=== PATIENT | female | born 1945 | race Hispanic/Latino ===

== ENCOUNTER 2017-11-30 16:37 | Inpatient (IN) | payer MEDICARE ==
[~2017-11-30] VITALS: Ht 170.2 cm; Wt 71.7 kg
[~2017-11-30 16:37] MED LIST: ASPIR 8181 MG PO; CLOPIDOGREL75 MG PO; SIMVASTATIN80 MG PO; TOPROL XL25 MG PO
[2017-11-30] MEDS ORDERED: ASPIRIN 81 MG CHEW TAB PO ONE (17:30)
--- NOTE | 2017-11-30 18:16 | Diagnostic Imaging Report ---
PROCEDURE: A single AP view of the chest. COMPARISON: None. INDICATIONS: CHEST PAIN CENTER TODAY FINDINGS: Lines/tubes: None. Lungs: The lungs are well inflated. Diffuse interstitial opacities, more confluent in the right upper lung. Pleura: There is no pleural effusion or pneumothorax. Heart and mediastinum: The heart and the mediastinum are unremarkable. Bones: No acute bony abnormality. Upper abdomen: No free air under the diaphragm. Cholecystectomy clips. IMPRESSION: Diffuse interstitial opacities, more confluent in the right upper lung, concerning for multifocal pneumonia in the appropriate clinical context. Dictated by: Waylon Ash M.D. on 11/30/2017 at 18:19 Electronically approved by: Waylon Ash M.D. on 11/30/2017 at 18:19
[2017-11-30 18:33] LABS: CLARITY,URINE SL CLOUDY (CLEAR); COLOR,URINE YELLOW (YELLOW)
[2017-11-30 18:35] LABS: BILIRUBIN,URINE NEGATIVE (NEGATIVE); KETONES,URINE NEGATIVE (NEGATIVE); LEUKOCYTE ESTERASE ,URINE NEGATIVE (NEGATIVE); NITRITE,URINE NEGATIVE (NEGATIVE); PROTEIN,URINE DIPSTICK NEGATIVE (NEGATIVE); URINE UROBILINOGEN 0.2 mg/dL (0.2 - 1)
[2017-11-30 18:43] LABS: EPITHELIAL CELLS,URINE FEW /LPF; MUCUS,URINE MODERATE (RARE); WBC,URINE (MAN) 0-5 /HPF (0-5)
[2017-11-30 19:17] LABS: BASOPHILS # (AUTO) 0.1 (0.0-0.1); BASOPHILS % 0.8 % (0.0-1.0); EOSINOPHILS # (AUTO) 0.3 (0.0-0.4); HEMATOCRIT 39.9 % (34.2-44.1); HEMOGLOBIN 13.1 g/dL (12.0-16.0); LYMPHOCYTES # (AUTO) 3.8 (1.0-3.2); LYMPHOCYTES % 44.3 % (18.0-39.1); MEAN CORPUSCULAR HEMOGLOBIN 30.5 pg (28-32); MEAN CORPUSCULAR HGB CONC 32.8 g/dL (31-35); MONOCYTES # (AUTO) 0.7 (0.2-0.8); MONOCYTES % 8.6 % (4.4-11.3); NEUTROPHILS # (AUTO) 3.6 (2.1-6.9); NEUTROPHILS % 41.9 % (38.7-80.0); PLATELET COUNT 248 x10e3/uL (140-360); RED BLOOD COUNT 4.29 x10e6/uL (3.6-5.1); RED CELL DISTRIBUTION WIDTH 13.2 % (11.7-14.4)
[2017-11-30 19:24] LABS: INR 1.02; PARTIAL THROMBOPLASTIN TIME 22.5 seconds (23.8-35.5); PROTHROMBIN TIME 12.6 seconds (11.9-14.5)
[2017-11-30 19:34] LABS: ALANINE AMINOTRANSFERASE 10 IU/L (0-55); ALBUMIN 3.5 g/dL (3.5-5.0); ALBUMIN/GLOBULIN RATIO 0.9 (0.8-2.0); ALKALINE PHOSPHATASE 109 IU/L (40-150); ANION GAP 14.3 mmol/L (8-16); BLOOD UREA NITROGEN 19 mg/dL (7-26); BUN/CREATININE RATIO 19 (6-25); CALCIUM 9.2 mg/dL (8.4-10.2); CARBON DIOXIDE 25 mmol/L (22-29); CHLORIDE 106 mmol/L (98-107); CREATINE KINASE 128 IU/L (29-168); EST GLOMERULAR FILTRATION RATE 54 ML/MIN (60-); GLUCOSE 90 mg/dL (74-118); LIPASE 40 U/L (8-78); POTASSIUM 4.3 mmol/L (3.5-5.1); SODIUM 141 mmol/L (136-145)
[2017-11-30 19:53] LABS: THYROID STIMULATING HORMONE 4.578 uIU/mL (0.350-4.940)
[2017-11-30] MEDS: AZITHROMYCIN 500MG/NS 250 ML 250 ML IV SCH (21:00)
[2017-11-30] MEDS ORDERED: SODIUM CHLORIDE FLUSH 10 ML SYR INJ PRN (21:15)
[2017-12-01] MEDS: ALBUTEROL SULF 0.083% NEB SOLN 3 ML NEB NEB SCH ×3 (00:10→19:30)
[2017-12-01] MEDS: CEFTRIAXONE SOD 1 GM VIAL IV SCH ×2 (00:23→20:47)
[2017-12-01 02:00] VITALS: BP 139/95
[2017-12-01] MEDS ORDERED: NEXIUM40 MG PO (02:42)
[2017-12-01 03:45] LABS: CREATINE KINASE 109 IU/L (29-168)
[2017-12-01 04:00] VITALS: BP 138/60
[2017-12-01] MEDS ORDERED: SODIUM CHLORIDE 0.9% 250ML 250 ML ONE (04:49)
[2017-12-01] MEDS: AZITHROMYCIN 500MG/NS 250 ML 250 ML IV SCH (04:59)
[2017-12-01 09:13] VITALS: BP 118/56
[2017-12-01 11:21] LABS: CREATINE KINASE 93 IU/L (29-168)
[2017-12-01] MEDS: IPRATROPIUM BROMIDE 0.02% 2.5 ML NEB NEB SCH ×2 (13:00→19:30)
[2017-12-01] MEDS ORDERED: NORCO 5-325 TA1 EACH PO (14:34)
[2017-12-01] MEDS: HYDROCODONE/APAP 5MG-325MG TAB PO PRN ×2 (16:14→22:31)
[2017-12-01 16:50] VITALS: BP 111/59
[2017-12-01 20:00] VITALS: BP 130/58
[2017-12-02] VITALS (7 sets, daily range): BP systolic 112–133; BP diastolic 56–70
[2017-12-02] MEDS: IPRATROPIUM BROMIDE 0.02% 2.5 ML NEB NEB SCH ×4 (00:10→19:43)
[2017-12-02] MEDS: ALBUTEROL SULF 0.083% NEB SOLN 3 ML NEB NEB SCH ×6 (03:05→23:35)
[2017-12-02] MEDS: HYDROCODONE/APAP 5MG-325MG TAB PO PRN ×3 (05:05→23:33)
[2017-12-02] MEDS: AZITHROMYCIN 500MG/NS 250 ML 250 ML IV SCH (05:05)
[2017-12-02] MEDS: METOPROLOL SUCCINATE 25 MG TAB XL PO SCH (08:15)
[2017-12-02] MEDS: ASPIRIN 81 MG CHEW TAB PO SCH (08:15)
[2017-12-02] MEDS: PANTOPRAZOLE SOD 40 MG TABEC PO SCH (08:15)
[2017-12-02] MEDS: CLOPIDOGREL BISULFATE 75 MG TAB PO SCH (08:15)
[2017-12-02] MEDS ORDERED: MAGNESIUM HYDROXIDE 30 ML UDC PO ONE (10:15)
[2017-12-02] MEDS: CEFTRIAXONE SOD 1 GM VIAL IV SCH (20:58)
[2017-12-02] MEDS ORDERED: SIMVASTATIN 80 MG TAB PO SCH (21:00)
[2017-12-03] VITALS (8 sets, daily range): BP systolic 106–132; BP diastolic 55–72
[2017-12-03] MEDS: IPRATROPIUM BROMIDE 0.02% 2.5 ML NEB NEB SCH ×5 (03:07→23:18)
[2017-12-03] MEDS: ALBUTEROL SULF 0.083% NEB SOLN 3 ML NEB NEB SCH ×6 (03:07→23:18)
[2017-12-03] MEDS: HYDROCODONE/APAP 5MG-325MG TAB PO PRN ×3 (05:36→21:18)
[2017-12-03] MEDS: AZITHROMYCIN 500MG/NS 250 ML 250 ML IV SCH (05:36)
[2017-12-03] MEDS: PANTOPRAZOLE SOD 40 MG TABEC PO SCH (09:11)
[2017-12-03] MEDS: ASPIRIN 81 MG CHEW TAB PO SCH (09:11)
[2017-12-03] MEDS: CLOPIDOGREL BISULFATE 75 MG TAB PO SCH (09:11)
[2017-12-03] MEDS: METOPROLOL SUCCINATE 25 MG TAB XL PO SCH (09:12)
--- NOTE | 2017-12-03 16:22 | Progress Note ---
DATE: December 03, 2017 INTERNAL MEDICINE PROGRESS NOTE SUBJECTIVE: A 72-year-old female who was diagnosed with pneumonia. She is doing much better now. PHYSICAL EXAM: VITAL SIGNS: Blood pressure 123/72. Temperature 96.7. Heart rate 71 per minute. Respiratory rate 17 per minute. Oxygen saturation is 99%. HEART: Regular rhythm. No murmur. No extra sounds. LUNGS: Crackles on both lungs. ABDOMEN: Soft. EXTREMITIES: Show no evidence of cyanosis, edema or trauma. On the BMP sodium 141, potassium 4.3, chloride 106, CO2 25, BUN 19, creatinine 1.0. Glucose 90. CBC showed white blood count 8.57, hemoglobin 13.1, hematocrit 39.9, platelet count 248,000. PT 12.6. INR 1.02. PTT 22.5. AST 15, ALT 10, total bilirubin 0.3, alkaline phosphatase 109. FINAL IMPRESSION: 1. Bilateral pneumonia. 2. Coronary artery disease. 3. Hypertension. 4. Hypercholesterolemia. PLAN OF TREATMENT: Continue albuterol and Atrovent q.6 hours, Zithromax 250 mg IV piggyback once a day. Rocephin 1 gram IV p.o. once a day. Plavix 75 mg daily. Metoprolol 25 mg daily. We need to hold the simvastatin because the patient is taking Zithromax because of the drug interaction. Continue Protonix 40 mg daily. Aspirin 81 mg daily. [place] 1 tablet q.6 h. as needed for pain. Job#: [id number]
[2017-12-03] MEDS: CEFTRIAXONE SOD 1 GM VIAL IV SCH (20:19)
[2017-12-04] VITALS (9 sets, daily range): BP systolic 118–146; BP diastolic 58–69
[2017-12-04] MEDS: ALBUTEROL SULF 0.083% NEB SOLN 3 ML NEB NEB SCH ×6 (02:52→23:06)
[2017-12-04] MEDS: AZITHROMYCIN 500MG/NS 250 ML 250 ML IV SCH (04:39)
[2017-12-04] MEDS: IPRATROPIUM BROMIDE 0.02% 2.5 ML NEB NEB SCH ×4 (07:00→23:06)
[2017-12-04] MEDS: ASPIRIN 81 MG CHEW TAB PO SCH (08:44)
[2017-12-04] MEDS: PANTOPRAZOLE SOD 40 MG TABEC PO SCH (08:44)
[2017-12-04] MEDS: CLOPIDOGREL BISULFATE 75 MG TAB PO SCH (08:44)
[2017-12-04] MEDS: METOPROLOL SUCCINATE 25 MG TAB XL PO SCH (08:45)
--- NOTE | 2017-12-04 15:49 | Progress Note ---
DATE: December 04, 2017 INTERNAL MEDICINE PROGRESS NOTE SUBJECTIVE: She is doing well. No significant complaints. PHYSICAL EXAM: VITAL SIGNS: Blood pressure 138/65. The patient 96.5, heart rate 60 per minute. Respiratory rate is 16 per minute. Oxygen saturation 99%. HEART: Regular rhythm. No murmur. No extra sounds. LUNGS: Clear bilaterally. ABDOMEN: Soft. EXTREMITIES: Show no evidence of cyanosis, edema or trauma. LABORATORY DATA: On the BMP, sodium 141, potassium 4.3, chloride 106. CO2 25, BUN 19, creatinine 1.0. Glucose 90. On the CBC white blood count 8.57, hemoglobin 13.1, hematocrit 39.9, platelet count 240.000. PT 12.6. INR 1.02. PTT 32.5. AST 15. ALT 10. Total bilirubin 0.3, alkaline phosphatase 109. FINAL IMPRESSION: 1. Multifocal pneumonia. 2. Hypertension. PLAN OF TREATMENT: Continue albuterol q.4 h. Atrovent q.6 hours. Zithromax 500 mg IV piggyback daily. Ceftriaxone 1 gram IV piggyback daily. Plavix 75 mg daily. Metoprolol 25 mg daily. Zocor is going to be placed on hold because the patient is taking Zithromax. Continue Protonix 40 mg daily. Aspirin 81 mg daily. [place] 1 tablet q.6 h. as needed. Tentative discharge hopefully tomorrow. Job#: [id number]
[2017-12-04] MEDS ORDERED: HYDROCODONE/APAP 5MG-325MG TAB PO PRN (16:30)
[2017-12-04] MEDS: CEFTRIAXONE SOD 1 GM VIAL IV SCH (20:39)
[2017-12-05] VITALS (8 sets, daily range): BP systolic 122–144; BP diastolic 26–66
[2017-12-05] MEDS: ALBUTEROL SULF 0.083% NEB SOLN 3 ML NEB NEB SCH ×6 (02:58→23:00)
[2017-12-05] MEDS: AZITHROMYCIN 500MG/NS 250 ML 250 ML IV SCH (05:03)
[2017-12-05] MEDS: IPRATROPIUM BROMIDE 0.02% 2.5 ML NEB NEB SCH ×3 (07:00→20:05)
[2017-12-05] MEDS: PANTOPRAZOLE SOD 40 MG TABEC PO SCH (09:33)
[2017-12-05] MEDS: ASPIRIN 81 MG CHEW TAB PO SCH (09:33)
[2017-12-05] MEDS: CLOPIDOGREL BISULFATE 75 MG TAB PO SCH (09:33)
[2017-12-05] MEDS: METOPROLOL SUCCINATE 25 MG TAB XL PO SCH (09:34)
[2017-12-05 11:46] LABS: BASOPHILS # (AUTO) 0.1 (0.0-0.1); BASOPHILS % 0.9 % (0.0-1.0); EOSINOPHILS # (AUTO) 0.3 (0.0-0.4); EOSINOPHILS % 4.3 % (0.0-6.0); HEMATOCRIT 39.3 % (34.2-44.1); HEMOGLOBIN 12.7 g/dL (12.0-16.0); LYMPHOCYTES # (AUTO) 2.5 (1.0-3.2); LYMPHOCYTES % 32.7 % (18.0-39.1); MEAN CORPUSCULAR HEMOGLOBIN 30.5 pg (28-32); MEAN CORPUSCULAR HGB CONC 32.3 g/dL (31-35); MEAN CORPUSCULAR VOLUME 94.5 fL (81-99); MONOCYTES # (AUTO) 0.6 (0.2-0.8); MONOCYTES % 8.1 % (4.4-11.3); NEUTROPHILS # (AUTO) 4.1 (2.1-6.9); NEUTROPHILS % 53.7 % (38.7-80.0); PLATELET COUNT 247 x10e3/uL (140-360); RED BLOOD COUNT 4.16 x10e6/uL (3.6-5.1)
[2017-12-05 12:09] LABS: ANION GAP 14.2 mmol/L (8-16); CALCIUM 9.3 mg/dL (8.4-10.2); CREATININE, SERUM 0.94 mg/dL (0.57-1.11); POTASSIUM 4.2 mmol/L (3.5-5.1)
--- NOTE | 2017-12-05 14:22 | Diagnostic Imaging Report ---
PROCEDURE: X-RAY CHEST, TWO VIEWS COMPARISON: Patients [facility], DX, CHEST SINGLE (PORTABLE), 11/30/2017, 17:44. INDICATIONS: PNEUMONIA FINDINGS: LUNGS: Diffuse hyperinflation and fibrosis is stable. No mass or infiltrate. Apical pleural-parenchymal thickening is stable.Pulmonary vasculature is normal. PLEURA: Stable eventration of right diaphragm. No effusions or pneumothorax. HEART \T\ MEDIASTINUM: The heart is within normal size-limits. BONES \T\ SOFT TISSUES: No focal osseous lesions. Cholecystectomy clips are stable. CONCLUSION: No evidence of infiltrate. No new cardiopulmonary process. Dictated by: Peri Shankar M.D. on 12/05/2017 at 14:25 Electronically approved by: Peri Shankar M.D. on 12/05/2017 at 14:25
[2017-12-05] MEDS: CEFTRIAXONE SOD 1 GM VIAL IV SCH (20:54)
[2017-12-06] VITALS: BP 152/66
[2017-12-06] MEDS: IPRATROPIUM BROMIDE 0.02% 2.5 ML NEB NEB SCH ×2 (01:00→07:45)
[2017-12-06] MEDS: ALBUTEROL SULF 0.083% NEB SOLN 3 ML NEB NEB SCH ×3 (03:00→11:09)
[2017-12-06 04:00] VITALS: BP 118/56
[2017-12-06] MEDS: AZITHROMYCIN 500MG/NS 250 ML 250 ML IV SCH (05:00)
[2017-12-06 07:25] VITALS: BP 135/65
[2017-12-06 07:47] VITALS: BP 135/63
[2017-12-06] MEDS: METOPROLOL SUCCINATE 25 MG TAB XL PO SCH (09:12)
[2017-12-06] MEDS: CLOPIDOGREL BISULFATE 75 MG TAB PO SCH (09:12)
[2017-12-06] MEDS: ASPIRIN 81 MG CHEW TAB PO SCH (09:12)
[2017-12-06] MEDS: PANTOPRAZOLE SOD 40 MG TABEC PO SCH (09:12)
[2017-12-06 11:43] VITALS: BP 133/97
== END 2017-12-06 11:46 | disposition home or self-care (01) | DRG 195 ==
LOC: ER 16:37 → ERHOLD 12-01 01:41 → MED/SURG3 12-01 02:00
DX: J18.9 Pneumonia, unspecified organism (principal); I25.10 Atherosclerotic heart disease of native coronary artery without angina pectoris; E78.00 Pure hypercholesterolemia, unspecified; I10 Essential (primary) hypertension; Z95.1 Presence of aortocoronary bypass graft; E03.9 Hypothyroidism, unspecified; E78.5 Hyperlipidemia, unspecified; Z79.899 Other long term (current) drug therapy
CPT/HCPCS: 36415; 71045; 71046; 80048; 80053; 81001; 82550; 82553; 83690; 83735; 83880; 84443; 84484; 85025; 85610; 85730; 87040; 87086; 93005; 94640; 96361; 99284; J0456; J0696; J7050

== ENCOUNTER → 2019-05-17 | Day surgery (SDC) | payer MEDICARE ==
[2019-05-14 16:12] LABS: BASOPHILS # (AUTO) 0.1 (0.0-0.1); BASOPHILS % 0.5 % (0.0-1.0); EOSINOPHILS # (AUTO) 0.2 (0.0-0.4); EOSINOPHILS % 1.7 % (0.0-6.0); HEMATOCRIT 37.6 % (34.2-44.1); HEMOGLOBIN 12.3 g/dL (12.0-16.0); LYMPHOCYTES # (AUTO) 3.2 (1.0-3.2); MEAN CORPUSCULAR HEMOGLOBIN 30.5 pg (28-32); MEAN CORPUSCULAR HGB CONC 32.7 g/dL (31-35); MEAN CORPUSCULAR VOLUME 93.3 fL (81-99); MONOCYTES # (AUTO) 0.9 (0.2-0.8); MONOCYTES % 8.4 % (4.4-11.3); NEUTROPHILS # (AUTO) 6.3 (2.1-6.9); NEUTROPHILS % 59.1 % (38.7-80.0); PLATELET COUNT 264 x10e3/uL (140-360); RED BLOOD COUNT 4.03 x10e6/uL (3.6-5.1); RED CELL DISTRIBUTION WIDTH 12.3 % (11.7-14.4)
[2019-05-14 16:27] LABS: ANION GAP 14.6 mmol/L (8-16); BLOOD UREA NITROGEN 12 mg/dL (7-26); BUN/CREATININE RATIO 14 (6-25); CALCIUM 9.4 mg/dL (8.4-10.2); CARBON DIOXIDE 25 mmol/L (22-29); CHLORIDE 105 mmol/L (98-107); CREATININE, SERUM 0.88 mg/dL (0.57-1.11); EST GLOMERULAR FILTRATION RATE > 60 ML/MIN (60-); GLUCOSE 91 mg/dL (74-118); POTASSIUM 3.6 mmol/L (3.5-5.1); SODIUM 141 mmol/L (136-145)
[~2019-05-17] MED LIST changes: +BALANCED SALT SOLN (OPTH) 15 ML BTL IO ONE; +BUPIVACAINE HC 0.75% PF 10ML VIAL INJ ONE; +CHONDR SU A NA/HYALUR SOD 1 EACH KIT IO ONE; +CYCLOPENTOLATE HCL 2% OPTH SOLN 2 ML BTL OP ONE; +EPINEPHRINE HCL 1:1000 1ML 1 MG/ML AMP ONE; +ESBRIET267 M1 PO; +FENTANYL CITRATE/PF 100MCG/2 ML INJ ONE; +GATIFLOXACIN(OPTH) 5 ML LIQD ONE; +LEVOTHYROXINE50 MCG PO; +LIDOCAINE 2% /EPINEPHRINE 20 ML SDV INJ ONE; +LIDOCAINE HCL 2% LOCAL INJ 5 ML SDV VIAL INJ ONE; +LIDOCAINE HCL-PF 4% 40 MG/1 ML 5ML AMP ONE; +MIDAZOLAM HCL 2 MG/2 ML VIAL ONE; +NEXIUM40 MG PO; +NORCO 5-325 TA1 EACH PO; +PHENYLEPHRINE HCL 2 ML DROPS ONE; +PILOCARPINE HCL(OPTH) 15 ML LIQD ONE; +POVIDONE IODINE 5% (OPTH) 30 ML BTL ONE; +PROPOFOL IV EMULSION 10 MG/ML 20 ML VIAL ONE; +TOBRAMYCIN/DEXAMETHASONE(OPTH) 3.5 GM TUBE ONE
[2019-05-17 09:40] VITALS: BP 128/60
== END | disposition home or self-care (01) ==
LOC: OR 06:57
PROVIDERS: ATTEND Ophthalmology
DX: H25.12 Age-related nuclear cataract, left eye (principal); I25.10 Atherosclerotic heart disease of native coronary artery without angina pectoris; I11.0 Hypertensive heart disease with heart failure; I50.9 Heart failure, unspecified; J84.10 Pulmonary fibrosis, unspecified; Z01.812 Encounter for preprocedural laboratory examination; Z79.02 Long term (current) use of antithrombotics/antiplatelets; Z79.82 Long term (current) use of aspirin; Z95.5 Presence of coronary angioplasty implant and graft; Z87.891 Personal history of nicotine dependence
CPT/HCPCS: 36415; 66982; 80048; 85025; J0171; J2001 ×2; J2250; J2704; J3010; V2632

== ENCOUNTER → 2019-07-12 | Day surgery (SDC) | payer MEDICARE ==
[2019-07-04 15:46] LABS: BASOPHILS # (AUTO) 0.1 (0.0-0.1); BASOPHILS % 0.8 % (0.0-1.0); EOSINOPHILS # (AUTO) 0.3 (0.0-0.4); EOSINOPHILS % 3.8 % (0.0-6.0); HEMATOCRIT 38.8 % (34.2-44.1); HEMOGLOBIN 12.2 g/dL (12.0-16.0); LYMPHOCYTES # (AUTO) 3.6 (1.0-3.2); LYMPHOCYTES % 41.1 % (18.0-39.1); MEAN CORPUSCULAR HEMOGLOBIN 29.8 pg (28-32); MEAN CORPUSCULAR HGB CONC 31.4 g/dL (31-35); MEAN CORPUSCULAR VOLUME 94.6 fL (81-99); MONOCYTES # (AUTO) 0.9 (0.2-0.8); MONOCYTES % 9.9 % (4.4-11.3); NEUTROPHILS # (AUTO) 3.8 (2.1-6.9); NEUTROPHILS % 43.9 % (38.7-80.0); PLATELET COUNT 338 x10e3/uL (140-360); RED CELL DISTRIBUTION WIDTH 12.7 % (11.7-14.4)
[2019-07-04 16:07] LABS: BLOOD UREA NITROGEN 14 mg/dL (7-26); BUN/CREATININE RATIO 17 (6-25); CALCIUM 9.1 mg/dL (8.4-10.2); CARBON DIOXIDE 26 mmol/L (22-29); CHLORIDE 105 mmol/L (98-107); CREATININE, SERUM 0.84 mg/dL (0.57-1.11); EST GLOMERULAR FILTRATION RATE > 60 ML/MIN (60-); GLUCOSE 91 mg/dL (74-118); SODIUM 142 mmol/L (136-145)
[~2019-07-12] MED LIST changes: -FENTANYL CITRATE/PF 100MCG/2 ML INJ ONE
[2019-07-12 08:25] VITALS: BP 131/55
== END | disposition home or self-care (01) ==
LOC: OR 05:12
PROVIDERS: ATTEND Ophthalmology
DX: H25.11 Age-related nuclear cataract, right eye (principal); I10 Essential (primary) hypertension; J84.10 Pulmonary fibrosis, unspecified; I25.10 Atherosclerotic heart disease of native coronary artery without angina pectoris; E03.9 Hypothyroidism, unspecified; K21.9 Gastro-esophageal reflux disease without esophagitis; Z01.810 Encounter for preprocedural cardiovascular examination; Z01.812 Encounter for preprocedural laboratory examination; Z79.02 Long term (current) use of antithrombotics/antiplatelets; Z79.82 Long term (current) use of aspirin
CPT/HCPCS: 36415; 66982; 80048; 85025; 93005; J0171; J2001 ×2; J2250; J2704; V2632

== ENCOUNTER 2021-01-25 19:44 | Emergency (ER) | payer MEDICARE, OTHER ==
[~2021-01-25] VITALS: Ht 162.6 cm; Wt 73.0 kg
[~2021-01-25 19:44] MED LIST changes: -BALANCED SALT SOLN (OPTH) 15 ML BTL IO ONE; -BUPIVACAINE HC 0.75% PF 10ML VIAL INJ ONE; -CHONDR SU A NA/HYALUR SOD 1 EACH KIT IO ONE; -CYCLOPENTOLATE HCL 2% OPTH SOLN 2 ML BTL OP ONE; -EPINEPHRINE HCL 1:1000 1ML 1 MG/ML AMP ONE; -GATIFLOXACIN(OPTH) 5 ML LIQD ONE; -LIDOCAINE 2% /EPINEPHRINE 20 ML SDV INJ ONE; -LIDOCAINE HCL 2% LOCAL INJ 5 ML SDV VIAL INJ ONE; -LIDOCAINE HCL-PF 4% 40 MG/1 ML 5ML AMP ONE; -MIDAZOLAM HCL 2 MG/2 ML VIAL ONE; -PHENYLEPHRINE HCL 2 ML DROPS ONE; -PILOCARPINE HCL(OPTH) 15 ML LIQD ONE; -POVIDONE IODINE 5% (OPTH) 30 ML BTL ONE; -PROPOFOL IV EMULSION 10 MG/ML 20 ML VIAL ONE; -TOBRAMYCIN/DEXAMETHASONE(OPTH) 3.5 GM TUBE ONE
[2021-01-25] MEDS ORDERED: SODIUM CHLORIDE 0.9% 50ML 50 ML ONE (20:43)
[2021-01-25] MEDS ORDERED: SODIUM CHLORIDE 0.9% 1000ML 1,000 ML ONE (20:43)
[2021-01-25] MEDS ORDERED: IOPAMIDOL 370 MG/ML 200 ML INFUS..BTL INJ ONE (20:44)
[2021-01-25 23:21] VITALS: BP 157/77
[2021-01-26] MEDS ORDERED: SODIUM CHLORIDE 0.9% 1000ML 1,000 ML IV STA (03:24)
== END 2021-01-25 23:21 | disposition home or self-care (01) ==
LOC: FSED 20:09
DX: R07.9 Chest pain, unspecified (principal); R94.31 Abnormal electrocardiogram [ECG] [EKG]; I10 Essential (primary) hypertension; E03.9 Hypothyroidism, unspecified; E78.5 Hyperlipidemia, unspecified; K21.9 Gastro-esophageal reflux disease without esophagitis
CPT/HCPCS: 71260; 80053; 84484; 85025; 93005; 99283; J7030; Q9967

== ENCOUNTER → 2022-03-18 | Outpatient (CLI) | payer MEDICARE | LOC: RAD 11:56 | DX: R06.02 Shortness of breath (principal); R05.9 Cough, unspecified | CPT/HCPCS: 71046 ==